=== PATIENT | male | born 1955 | race African-American/Black ===

== ENCOUNTER 2016-05-24 14:05 | Inpatient (IN) | payer OTHER ==
--- NOTE | 2016-05-24 19:19 | HP ---
CIWA Score - CIWA Score Nausea/Vomitin Muscle Tremors: 4-Moderate,w/Arms Extend Anxiety: 4-Mod. Anxious/Guarded Agitation: 4-Moderately Restless Paroxysmal Sweats: 2 Orientation: 1-Uncertain about Date Tacttile Disturbances: 0-None Auditory Disturbances: 0-None Visual Disturbances: 0-None Headache: 0-None Present CIWA-Ar Total Score: 17 Admission ROS BHS - HPI Chief Complaint: withdrawal sx Allergies/Adverse Reactions: Allergies Allergy/AdvReac Type Severity Reaction Status Date / Time No Known Allergies Allergy Verified 05/24/16 18:51 History of Present Illness: 61 years old male with long history of alcohol xanax dependence, denies medical denies mental illness is admitted to detox Exam Limitations: No Limitations - Ebola screening Have you traveled outside of the country in the last 21 days: No Have you had contact with anyone from an Ebola affected area: No Have you been sick,other than usual withdrawal symptoms: No Do you have a fever: No - Review of Systems Constitutional: Chills, Loss of Appetite, Changes in sleep, Unexplained wgt Loss EENT: reports: No Symptoms Reported Respiratory: reports: No Symptoms reported Cardiac: reports: No Symptoms Reported GI: reports: Nausea, Poor Appetite, Poor Fluid Intake, Vomiting, Abdominal cramping : reports: No Symptoms Reported Musculoskeletal: reports: Back Pain, Joint Pain, Muscle Pain, Neck Pain Integumentary: reports: Rash (right foot) Neuro: reports: Tremors Endocrine: reports: No Symptoms Reported Hematology: reports: No Symptoms Reported Psychiatric: reports: Judgement Intact, Mood/Affect Appropiate Other Systems: Reviewed and Negative Patient History - Patient Medical History Hx Anemia: No Hx Asthma: No Hx Chronic Obstructive Pulmonary Disease (COPD): No Hx Cancer: No Hx Cardiac Disorders: No Hx Congestive Heart Failure: No Hx Hypertension: No Hx Hypercholesterolemia: No Hx Pacemaker: No HX Cerebrovascular Accident: No Hx Seizures: No Hx Dementia: No Hx Diabetes: No Hx Gastrointestinal Disorders: No Hx Liver Disease: No Hx Genitourinary Disorders: No Hx Sexually Transmitted Disorders: No Hx Renal Disease (ESRD): No Hx Thyroid Disease: No Hx Human Immunodeficiency Virus (HIV): No Hx Hepatitis C: No Hx Depression: No Hx Suicide Attempt: No Hx Bipolar Disorder: No Hx Schizophrenia: No - Patient Surgical History Past Surgical History: No Hx Neurologic Surgery: No Hx Cataract Extraction: No Hx Cardiac Surgery: No Hx Lung Surgery: No Hx Breast Surgery: No Hx Breast Biopsy: No Hx Abdominal Surgery: No Hx Appendectomy: No Hx Cholecystectomy: No Hx Genitourinary Surgery: No Hx Orthopedic Surgery: No Anesthesia Reaction: No - PPD History Previous Implant?: Yes Documented Results: Negative w/o proof Implanted On Prior R Admission?: No PPD to be Administered?: Yes - Smoking Cessation Smoking history: Current every day smoker Have you smoked in the past 12 months: Yes Aproximately how many cigarettes per day: 2 Hx Chewing Tobacco Use: No Initiated information on smoking cessation: Yes 'Breaking Loose' booklet given: 05/24/16 - Substance & Tx. History Hx Alcohol Use: Yes Hx Substance Use: Yes Substance Use Type: Alcohol, Tranquilizers Hx Substance Use Treatment: Yes - Substances Abused Alcohol Route: Oral Frequency: Daily Amount used: liquor 1 pint, beer- 1/2 six pack Age of first use: 40 Date of Last Use: 05/22/16 Alprazolam (Xanax) Route: Oral Frequency: 1-2 times per week Amount used: 4mg Age of first use: 60 Date of Last Use: 05/24/16 Heroin Route: Inhalation Frequency: 1-3 times last 30 days Amount used: 10 bags Age of first use: 40 Date of Last Use: 05/10/16 Family Disease History - Family Disease History Family Disease History: Heart Disease: Father () Admission Physical Exam BHS - Vital Signs Vital Signs: Vital Signs - 24 hr 05/24/16 05/24/16 17:20 17:26 Temperature 96.4 F L 96.9 F L Pulse Rate 80 87 Respiratory 20 18 Rate Blood Pressure 127/82 140/98 - Physical General Appearance: Yes: Appropriately Dressed, Mild Distress, Thin, Tremorous, Irritable, Sweating, Anxious HEENTM: Yes: Hearing grossly Normal, Normal ENT Inspection, Normocephalic, Normal Voice Respiratory: Yes: Chest Non-Tender, Lungs Clear, Normal Breath Sounds, No Respiratory Distress, No Accessory Muscle Use Neck: Yes: Supple, Trachea in good position Breast: Yes: Breasts Symetrical Cardiology: Yes: Regular Rhythm, Regular Rate, S1, S2 Abdominal: Yes: Non Tender, Soft Genitourinary: Yes: Within Normal Limits Back: Yes: Normal Inspection Musculoskeletal: Yes: full range of Motion, Gait Steady, Back pain, Muscle Pain Extremities: Yes: Normal Range of Motion, Non-Tender, Tremors Neurological: Yes: Alert, Motor Strength 5/5, Normal Mood/Affect, Normal Response Integumentary: Yes: Warm, Moist, Rash (right foot) Lymphatic: Yes: Within Normal Limits - Diagnostic (1) Alcohol dependence with uncomplicated withdrawal Current Visit: Yes Status: Acute (2) Sedative, hypnotic or anxiolytic dependence with withdrawal, uncomplicated Current Visit: Yes Status: Acute (3) Vomiting Current Visit: Yes Status: Acute Qualifiers: Vomiting type: unspecified Vomiting Intractability: intractable Nausea presence: with nausea Qualified Code(s): R11.2 - Nausea with vomiting, unspecified (4) Methadone maintenance therapy patient Current Visit: Yes Status: Acute Comment: 30 mg verification pending (5) Atypical rash Current Visit: Yes Status: Acute Comment: right foot fluocinonides Cleared for Admission [facility] - Detox or Rehab [facility] Level of Care: Medically Managed Detox Regimen/Protocol: Librium [facility] Breath Alcohol Content Breath Alcohol Content: 0 Vital Signs - Vital Signs BP Location: Left Arm Blood Pressure Position: Sitting - Height Height: 6 ft - Weight Weight: 172 lb Weight Measurement Method: Standing Scale Body Mass Index (BMI): 23.3 - Bowel Function Bowel Movement: No Urine Drug Screen - Results Drug Screen Negative: No Urine Drug Screen Results: OPI-Opiates, MET-Methamphetamine, OXY-Oxycodone
[2016-05-24 19:30] VITALS: BMI 23.3
[2016-05-24] MEDS ORDERED: chlordiazePOXIDE HCL 25 MG CAPSULE PO ONE (19:31)
[2016-05-24] MEDS ORDERED: IBUPROFEN 400 MG TABLET (FP) PO PRN (19:31)
[2016-05-24] MEDS ORDERED: guaiFENesin/D-METHORPHAN HB 10 ML UNIT-DOSE CUPS PO PRN (19:31)
[2016-05-24] MEDS ORDERED: MENTHOL/PHENOL 1 EACH UD MM PRN (19:31)
[2016-05-24] MEDS ORDERED: ACETAMINOPHEN 325 MG TABLET (FP) PO PRN (19:31)
[2016-05-24] MEDS ORDERED: chlordiazePOXIDE HCL 25 MG CAPSULE PO PRN (19:31)
[2016-05-24] MEDS ORDERED: LOPERAMIDE HCL 2 MG CAPSULE PO PRN (19:31)
[2016-05-24] MEDS ORDERED: P-EPHED 60MG/TRIPROLIDI 2.5MG TABLET PO PRN (19:31)
[2016-05-24] MEDS ORDERED: MAG HYDROX/AL HYDROX/SIMETH 30 ML UNIT-DOSE CUP PO PRN (19:31)
[2016-05-24] MEDS ORDERED: NICOTINE 14 MG/24 HOURS TOPICAL PATCH TD PRN (19:31)
[2016-05-24] MEDS ORDERED: MAGNESIUM HYDROX 2400MG/30ML ORAL SUSPENSION 30 ML CUP PO PRN (19:31)
[2016-05-24] MEDS ORDERED: NICOTINE POLACRILEX 2 MG GUM BC PRN (19:31)
[2016-05-24] MEDS ORDERED: MAGNESIUM CITRATE 300 ML BOTTLE PO PRN (19:31)
[2016-05-24] MEDS: THIAMINE HCL 100 MG TABLET (FP) PO SCH (22:17)
[2016-05-24] MEDS: diphenhydrAMINE HCL 50 MG CAPSULE PO PRN (22:18)
[2016-05-24] MEDS: chlordiazePOXIDE HCL 25 MG CAPSULE PO SCH (22:18)
[2016-05-24 23:12] LABS: PH,URINE 5.5 (5.0-8.0); URINE APPEARANCE CLEAR; URINE BILIRUBIN NEGATIVE (NEGATIVE); URINE COLOR YELLOW; URINE GLUCOSE (UA) NEGATIVE (NEGATIVE); URINE KETONE NEGATIVE (NEGATIVE); URINE LEUK ESTERASE NEGATIVE (NEGATIVE); URINE NITRITE NEGATIVE (NEGATIVE); URINE PROTEIN TRACE (NEGATIVE); URINE UROBILINOGEN 0.2 E.U/dl E.U./dl (0.2-1.0)
[2016-05-24 23:23] LABS: URINE BLOOD 1+ (NEGATIVE)
[2016-05-25] MEDS: FLUOCINONIDE 0.05% TOP OINT (60 GM TUBE) TP SCH ×4 (00:08→22:05)
[2016-05-25 00:25] LABS: URINE BACTERIA RARE /hpf (NONE SEEN); URINE MUCUS RARE; URINE RBC 3 /hpf (0-3); URINE WBC 10 /hpf (3-5)
[2016-05-25] MEDS: chlordiazePOXIDE HCL 25 MG CAPSULE PO SCH ×4 (06:26→22:04)
[2016-05-25] MEDS ORDERED: METHADONE HCL 10 MG TABLET PO ONE (09:03)
[2016-05-25 09:58] LABS: MCH 30.1 pg (25.7-33.7); MCHC 33.1 g/dl (32.0-35.9); MEAN CELL VOLUME 90.9 fl (80-96); MEAN PLT VOLUME 8.6 fl (7.5-11.1); PLATELET COUNT 254 K/MM3 (134-434); RDW 15.2 % (11.9-15.9); WHITE BLOOD COUNT 5.7 K/mm3 (4.0-10.0)
[2016-05-25 10:11] LABS: ALBUMIN 3.1 g/dl (3.4-5.0); ALK PHOS 68 U/L (45-117); ANION GAP 8 (8-16); BILIRUBIN,TOTAL 0.8 mg/dL (0.2-1.0); CALCIUM 8.2 mg/dL (8.5-10.1); CO2 25 mmol/L (21-32); GLUCOSE,RANDOM 95 mg/dL (74-106); SGOT/AST 18 U/L (15-37); SGPT/ALT 16 U/L (12-78); TOT PROT 6.7 g/dl (6.4-8.2)
[2016-05-25] MEDS: PRENATAL VITAMINS W/ FOLIC ACID TABLET (FP) PO SCH (11:01)
--- NOTE | 2016-05-25 13:22 | PN ---
S CIWA - CIWA Score Nausea/Vomitin Muscle Tremors: 2 Anxiety: 2 Agitation: 2 Paroxysmal Sweats: 2 Orientation: 0-Oriented Tacttile Disturbances: 1-Very Mild Itch/Numbness Auditory Disturbances: 0-None Visual Disturbances: 0-None Headache: 0-None Present CIWA-Ar Total Score: 11 BHS Progress Note (SOAP) Subjective: interrupted sleep,sweats Objective: 05/25/16 13:20 Vital Signs Temperature 97.7 F 05/25/16 09:38 Pulse Rate 82 05/25/16 09:38 Respiratory Rate 18 05/25/16 09:38 Blood Pressure 105/67 05/25/16 09:38 O2 Sat by Pulse Oximetry (%) Laboratory Tests 05/24/16 05/25/16 05/25/16 23:00 07:00 07:00 WBC 5.7 RBC 4.29 Hgb 12.9 Hct 39.0 MCV 90.9 MCHC 33.1 RDW 15.2 Plt Count 254 MPV 8.6 Sodium 138 Potassium 3.9 Chloride 105 Carbon Dioxide 25 Anion Gap 8 BUN 11 Creatinine 1.0 Creat Clearance w eGFR > 60 Random Glucose 95 Calcium 8.2 L Total Bilirubin 0.8 AST 18 ALT 16 Alkaline Phosphatase 68 Total Protein 6.7 Albumin 3.1 L Urine Color Yellow Urine Appearance Clear Urine pH 5.5 Ur Specific [place] >= 1.030 Urine Protein Trace H Urine Glucose (UA) Negative Urine Ketones Negative Urine Blood 1+ H Urine Nitrite Negative Urine Bilirubin Negative Urine Urobilinogen 0.2 e.u/dl Ur Leukocyte Esterase Negative Urine RBC 3 Urine WBC 10 Urine Bacteria Rare Urine Mucus Rare RPR Titer 05/25/16 07:00 WBC RBC Hgb Hct MCV MCHC RDW Plt Count MPV Sodium Potassium Chloride Carbon Dioxide Anion Gap BUN Creatinine Creat Clearance w eGFR Random Glucose Calcium Total Bilirubin AST ALT Alkaline Phosphatase Total Protein Albumin Urine Color Urine Appearance Urine pH Ur Specific [place] Urine Protein Urine Glucose (UA) Urine Ketones Urine Blood Urine Nitrite Urine Bilirubin Urine Urobilinogen Ur Leukocyte Esterase Urine RBC Urine WBC Urine Bacteria Urine Mucus RPR Titer Nonreactive pt aox3 in nad ambulating 05/25/16 13:21 Assessment: 05/25/16 13:21 withdrawl sx's 05/25/16 13:21 abn u/a Plan: cont. detox increase fluids repeat u/a
[2016-05-25] MEDS: diphenhydrAMINE HCL 50 MG CAPSULE PO PRN (22:04)
[2016-05-25] MEDS: THIAMINE HCL 100 MG TABLET (FP) PO SCH (22:05)
[2016-05-26] MEDS: chlordiazePOXIDE HCL 25 MG CAPSULE PO SCH ×3 (05:29→17:34)
[2016-05-26] MEDS: FLUOCINONIDE 0.05% TOP OINT (60 GM TUBE) TP SCH ×3 (05:31→22:16)
[2016-05-26] MEDS: METHADONE HCL 10 MG TABLET PO SCH (05:31)
--- NOTE | 2016-05-26 10:20 | EKG ---
Test Reason : Blood Pressure : / mmHG Vent. Rate : 066 BPM Atrial Rate : 066 BPM P-R Int : 148 ms QRS Dur : 080 ms QT Int : 416 ms P-R-T Axes : 078 052 044 degrees QTc Int : 436 ms NORMAL SINUS RHYTHM NORMAL ECG NO PREVIOUS ECGS AVAILABLE Confirmed by NEFTALI FELIZ, WOJCIECH ([id number]) on 05/26/2016 10:20:09 AM Referred By: Pancho Serrano Confirmed By:WOJCIECH LINDSAY MD
[2016-05-26] MEDS: PRENATAL VITAMINS W/ FOLIC ACID TABLET (FP) PO SCH (10:28)
--- NOTE | 2016-05-26 10:46 | PN ---
S CIWA - CIWA Score Nausea/Vomitin Muscle Tremors: 2 Anxiety: 2 Agitation: 2 Paroxysmal Sweats: 2 Orientation: 0-Oriented Tacttile Disturbances: 1-Very Mild Itch/Numbness Auditory Disturbances: 0-None Visual Disturbances: 0-None Headache: 0-None Present CIWA-Ar Total Score: 11 S Progress Note (SOAP) Subjective: interrupted slepp, Objective: 05/26/16 10:43 Vital Signs Temperature 98.4 F 05/26/16 10:18 Pulse Rate 81 05/26/16 10:18 Respiratory Rate 18 05/26/16 10:18 Blood Pressure 109/69 05/26/16 10:18 O2 Sat by Pulse Oximetry (%) Laboratory Tests 05/24/16 05/25/16 05/25/16 23:00 07:00 07:00 WBC 5.7 RBC 4.29 Hgb 12.9 Hct 39.0 MCV 90.9 MCHC 33.1 RDW 15.2 Plt Count 254 MPV 8.6 Sodium 138 Potassium 3.9 Chloride 105 Carbon Dioxide 25 Anion Gap 8 BUN 11 Creatinine 1.0 Creat Clearance w eGFR > 60 Random Glucose 95 Calcium 8.2 L Total Bilirubin 0.8 AST 18 ALT 16 Alkaline Phosphatase 68 Total Protein 6.7 Albumin 3.1 L Urine Color Yellow Urine Appearance Clear Urine pH 5.5 Ur Specific [place] >= 1.030 Urine Protein Trace H Urine Glucose (UA) Negative Urine Ketones Negative Urine Blood 1+ H Urine Nitrite Negative Urine Bilirubin Negative Urine Urobilinogen 0.2 e.u/dl Ur Leukocyte Esterase Negative Urine RBC 3 Urine WBC 10 Urine Bacteria Rare Urine Mucus Rare RPR Titer 05/25/16 07:00 WBC RBC Hgb Hct MCV MCHC RDW Plt Count MPV Sodium Potassium Chloride Carbon Dioxide Anion Gap BUN Creatinine Creat Clearance w eGFR Random Glucose Calcium Total Bilirubin AST ALT Alkaline Phosphatase Total Protein Albumin Urine Color Urine Appearance Urine pH Ur Specific [place] Urine Protein Urine Glucose (UA) Urine Ketones Urine Blood Urine Nitrite Urine Bilirubin Urine Urobilinogen Ur Leukocyte Esterase Urine RBC Urine WBC Urine Bacteria Urine Mucus RPR Titer Nonreactive pt aox3 in nad ambulating Assessment: 05/26/16 10:44 withdrawl sx's Plan: cont. detox increase fluids f/up pending labs ua
[2016-05-26] MEDS: THIAMINE HCL 100 MG TABLET (FP) PO SCH (22:16)
[2016-05-26] MEDS: chlordiazePOXIDE 5 MG CAPSULE PO SCH (22:16)
[2016-05-27] MEDS: METHADONE HCL 10 MG TABLET PO SCH (05:33)
[2016-05-27] MEDS: chlordiazePOXIDE 5 MG CAPSULE PO SCH ×3 (05:33→17:20)
[2016-05-27] MEDS: FLUOCINONIDE 0.05% TOP OINT (60 GM TUBE) TP SCH ×3 (07:41→22:17)
--- NOTE | 2016-05-27 09:06 | PN ---
BHS Progress Note (SOAP) Subjective: feeling better very little sweats Objective: 05/27/16 09:05 Vital Signs Temperature 95.9 F L 05/27/16 05:51 Pulse Rate 66 05/27/16 05:51 Respiratory Rate 18 05/27/16 05:51 Blood Pressure 126/51 05/27/16 05:51 O2 Sat by Pulse Oximetry (%) awake/alert ambulating no acute distress Assessment: 05/27/16 09:06 withdrawal sx Plan: continue detox increase fluids d/c in am
[2016-05-27] MEDS: PRENATAL VITAMINS W/ FOLIC ACID TABLET (FP) PO SCH (10:24)
[2016-05-27] MEDS: chlordiazePOXIDE HCL 10 MG CAPSULE PO SCH (22:15)
[2016-05-27] MEDS: THIAMINE HCL 100 MG TABLET (FP) PO SCH (22:15)
[2016-05-27] MEDS: diphenhydrAMINE HCL 50 MG CAPSULE PO PRN (22:16)
[2016-05-28] MEDS: METHADONE HCL 10 MG TABLET PO SCH (05:48)
[2016-05-28] MEDS: chlordiazePOXIDE HCL 10 MG CAPSULE PO SCH ×2 (05:48→10:47)
[2016-05-28] MEDS: FLUOCINONIDE 0.05% TOP OINT (60 GM TUBE) TP SCH (07:15)
--- NOTE | 2016-05-28 08:16 | PN ---
S Progress Note (SOAP) Subjective: ALERT,NO COMPLAINT Objective: 05/28/16 08:15 Vital Signs Temperature 98.2 F 05/28/16 06:25 Pulse Rate 60 05/28/16 06:25 Respiratory Rate 16 05/28/16 06:25 Blood Pressure 102/77 05/28/16 06:25 O2 Sat by Pulse Oximetry (%) Assessment: 05/28/16 08:16 DETOX COMPLETED,NO WITHDRAWAL SYMPTOM Plan: DISCHARGE TODAY,FOLLOW UP WITH AFTER CARE PROGRAM ARRANGEMENT
--- NOTE | 2016-05-28 08:35 | DS ---
[facility] Detox Discharge Summary Admission Date: 05/24/16 Discharge Date: 05/28/16 - History Present History: Alcohol Dependence, Opioid Dependence Pertinent Past History: below - Physical Exam Results Vital Signs: Vital Signs Temperature 98.2 F 05/28/16 06:25 Pulse Rate 60 05/28/16 06:25 Respiratory Rate 16 05/28/16 06:25 Blood Pressure 102/77 05/28/16 06:25 O2 Sat by Pulse Oximetry (%) Pertinent Admission Physical Exam Findings: admitted in withdrawal medically stable on dc detox completed dc today Vital Signs - 24 hr 05/27/16 05/27/16 05/27/16 10:33 14:10 17:51 Temperature 97.2 F L 97.7 F 97.2 F L Pulse Rate 88 77 66 Respiratory 18 18 16 Rate Blood Pressure 114/70 119/73 101/55 05/27/16 05/28/16 05/28/16 22:34 00:30 03:30 Temperature 96.8 F L Pulse Rate 77 Respiratory 18 18 18 Rate Blood Pressure 103/76 05/28/16 06:25 Temperature 98.2 F Pulse Rate 60 Respiratory 16 Rate Blood Pressure 102/77 Laboratory Tests 05/24/16 05/25/16 05/25/16 23:00 07:00 07:00 WBC 5.7 RBC 4.29 Hgb 12.9 Hct 39.0 MCV 90.9 MCHC 33.1 RDW 15.2 Plt Count 254 MPV 8.6 Sodium 138 Potassium 3.9 Chloride 105 Carbon Dioxide 25 Anion Gap 8 BUN 11 Creatinine 1.0 Creat Clearance w eGFR > 60 Random Glucose 95 Calcium 8.2 L Total Bilirubin 0.8 AST 18 ALT 16 Alkaline Phosphatase 68 Total Protein 6.7 Albumin 3.1 L Urine Color Yellow Urine Appearance Clear Urine pH 5.5 Ur Specific [place] >= 1.030 Urine Protein Trace H Urine Glucose (UA) Negative Urine Ketones Negative Urine Blood 1+ H Urine Nitrite Negative Urine Bilirubin Negative Urine Urobilinogen 0.2 e.u/dl Ur Leukocyte Esterase Negative Urine RBC 3 Urine WBC 10 Urine Bacteria Rare Urine Mucus Rare RPR Titer 05/25/16 07:00 WBC RBC Hgb Hct MCV MCHC RDW Plt Count MPV Sodium Potassium Chloride Carbon Dioxide Anion Gap BUN Creatinine Creat Clearance w eGFR Random Glucose Calcium Total Bilirubin AST ALT Alkaline Phosphatase Total Protein Albumin Urine Color Urine Appearance Urine pH Ur Specific [place] Urine Protein Urine Glucose (UA) Urine Ketones Urine Blood Urine Nitrite Urine Bilirubin Urine Urobilinogen Ur Leukocyte Esterase Urine RBC Urine WBC Urine Bacteria Urine Mucus RPR Titer Nonreactive - Treatment Hospital Course: Detox Protocol Followed, Detoxed Safely, Responded well, Discharged Condition Good, Rehab Referral Accepted - Medication Discharge Medications: Ambulatory Orders NK [No Known Home Medication] 05/24/16 - Diagnosis (1) Alcohol dependence with uncomplicated withdrawal Current Visit: Yes Status: Acute (2) Atypical rash Current Visit: Yes Status: Acute (3) Methadone maintenance therapy patient Current Visit: Yes Status: Acute (4) Sedative, hypnotic or anxiolytic dependence with withdrawal, uncomplicated Current Visit: Yes Status: Acute (5) Vomiting Current Visit: Yes Status: Acute Qualifiers: Vomiting type: unspecified Vomiting Intractability: intractable Nausea presence: with nausea Qualified Code(s): R11.2 - Nausea with vomiting, unspecified - AMA Did Patient Leave Against Medical Advice: No
[2016-05-28 10:07] VITALS: BP 107/68; PULSE 83; TEMP 98.8
[2016-05-28] MEDS: PRENATAL VITAMINS W/ FOLIC ACID TABLET (FP) PO SCH (10:47)
== END 2016-05-28 11:58 | disposition home or self-care (01) | DRG 773 ==
LOC: YASAS 14:05 → Y6N 19:11
PROVIDERS: ADMIT Internal Medicine Addiction Medicine; ATTEND Internal Medicine Addiction Medicine
PROC: HZ2ZZZZ Detoxification Services for Substance Abuse Treatment (ICD-10-PCS; principal; 2016-05-24)
DX: F10.230 Alcohol dependence with withdrawal, uncomplicated (principal); F11.20 Opioid dependence, uncomplicated; F13.230 Sedative, hypnotic or anxiolytic dependence with withdrawal, uncomplicated; R21 Rash and other nonspecific skin eruption; R11.2 Nausea with vomiting, unspecified; R82.90 Unspecified abnormal findings in urine; Z72.0 Tobacco use
CPT/HCPCS: 36415; 80053; 81003; 81015; 85027; 86593; 93005; 93010